=== PATIENT | female | born 2005 | race Caucasian/White ===

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

== ENCOUNTER 2024-05-28 12:37 | Inpatient (IN) | payer MEDICAID ==
[~2024-05-28] VITALS: Ht 165.1 cm; Wt 93.9 kg
[~2024-05-28 12:37] MED LIST changes: +METO5TAB86 MT; +NAPR-1494 MT; -NAPR375T5 MT; +NITR-87 MT
[2024-05-28 13:12] LABS: BASOPHILS % 0.5 % (0.0-2.0); DIFFERENTIAL COMMENT 0; EOSINOPHILS % 0.7 % (0.0-5.0); HEMATOCRIT. 40.3 % (36.0-48.0); HEMOGLOBIN. 12.9 g/dL (12.0-16.0); LYMPHOCYTES % 12.3 % (20.0-50.0); MEAN CORPUSCULAR HEMOGLOBIN 25.1 pg (28.0-32.0); MEAN CORPUSCULAR HGB CONC 31.9 g/dL (31.0-37.0); MEAN CORPUSCULAR VOLUME 78.6 fL (81.0-99.0); MEAN PLATELET VOLUME 9.8 fl (7.4-10.4); MONOCYTES % 6.6 % (2.0-8.0); NEUTROPHILS % 79.9 % (40.0-76.0); PLATELET 275 x1000/uL (130-400); RED BLOOD CELL COUNT 5.12 mill/uL (4.2-5.4); RED CELL DISTRIBUTION WIDTH 17.1 % (11.6-14.6); WHITE BLOOD COUNT 6.7 x1000/uL (4.5-11.0)
[2024-05-28 13:17] LABS: CHLORIDE 104 mEq/L (98-107); POTASSIUM 3.5 mEq/L (3.5-5.1); SODIUM 143 mEq/L (136-145)
[2024-05-28 13:18] LABS: CARBON DIOXIDE 29 mEq/L (21-32)
[2024-05-28 13:19] LABS: CALCIUM 9.5 mg/dL (8.7-10.4)
[2024-05-28 13:23] LABS: CREATININE 0.9 mg/dL (0.6-1.0); GLUCOSE 129 mg/dL (70-105)
[2024-05-28 13:24] LABS: UREA NITROGEN BLOOD 7 mg/dL (9-23)
[2024-05-28 13:25] LABS: ALANINE AMINOTRANSFERASE 451 IU/L (10-49); ALBUMIN 4.3 g/dL (3.2-4.8); ASPARTATE AMINOTRANSFERASE 834 IU/L (<34)
[2024-05-28 13:26] LABS: BILIRUBIN DIRECT 1.4 mg/dL (<=3.0); BILIRUBIN TOTAL 2.6 mg/dL (0.1-1.0); PROTEIN TOTAL 7.2 g/dL (6.0-8.3)
[2024-05-28] MEDS: SODIUM CHLORIDE 0.9% 1,000 ML IV ONE (15:12)
[2024-05-28] MEDS: KETOROLAC 15MG/ML VIAL IV ONE (15:13)
[2024-05-28] MEDS: MORPHINE SULFATE 4 MG/ML INJ (FOR IV/IM USE) IV NR (17:10)
[2024-05-28] MEDS: SODIUM CHLORIDE 0.9% (SEPSIS BOLUS) IV NR (17:10)
[2024-05-28 20:00] VITALS: BP 126/74; PULSE 66; RESP 18; TEMP 36.2; O2SAT 100
[2024-05-28] MEDS ORDERED: PREN-55 PO (20:11)
[2024-05-28] MEDS ORDERED: ESCI20TA PO (20:11)
[2024-05-28] MEDS ORDERED: FERR325T6 PO (20:11)
[2024-05-28] MEDS ORDERED: ATEN-42 PO (20:11)
[2024-05-28] MEDS ORDERED: ONDANSETRON HCL 4MG/2ML INJ IV PRN (20:15)
[2024-05-28] MEDS ORDERED: NALOXONE HCL 0.4MG/ML VIAL IV PRN (21:00)
[2024-05-28] MEDS: DEXT 5%/0.45% NACL KCL 20MEQ/L 1,000 ML IV SCH (22:14)
[2024-05-28] MEDS: CEFTRIAXONE 1GM/50ML 100 ML IV SCH (22:14)
[2024-05-29] VITALS: BP 120/70; PULSE 65; RESP 18; TEMP 36.1; O2SAT 98
[2024-05-29 04:00] VITALS: BP 102/53; PULSE 87; RESP 18; TEMP 36.4; O2SAT 99
[2024-05-29 06:37] LABS: CHLORIDE 109 mEq/L (98-107); SODIUM 145 mEq/L (136-145)
[2024-05-29 06:42] LABS: CALCIUM 8.3 mg/dL (8.7-10.4); CARBON DIOXIDE 25 mEq/L (21-32)
[2024-05-29 06:47] LABS: CREATININE 0.8 mg/dL (0.6-1.0); GLUCOSE 96 mg/dL (70-105); UREA NITROGEN BLOOD 6 mg/dL (9-23)
[2024-05-29 06:48] LABS: ALANINE AMINOTRANSFERASE 225 IU/L (10-49); ALBUMIN 3.2 g/dL (3.2-4.8); AMYLASE 648 IU/L (30-118); ASPARTATE AMINOTRANSFERASE 197 IU/L (<34)
[2024-05-29 06:49] LABS: BILIRUBIN TOTAL 0.7 mg/dL (0.1-1.0); PROTEIN TOTAL 5.3 g/dL (6.0-8.3)
[2024-05-29 07:05] LABS: BASOPHILS % 0.8 % (0.0-2.0); DIFFERENTIAL COMMENT 0; EOSINOPHILS % 2.2 % (0.0-5.0); HEMATOCRIT. 32.2 % (36.0-48.0); HEMOGLOBIN. 10.5 g/dL (12.0-16.0); LYMPHOCYTES % 36.4 % (20.0-50.0); MEAN CORPUSCULAR HEMOGLOBIN 25.7 pg (28.0-32.0); MEAN CORPUSCULAR HGB CONC 32.6 g/dL (31.0-37.0); MEAN CORPUSCULAR VOLUME 78.8 fL (81.0-99.0); MEAN PLATELET VOLUME 10.3 fl (7.4-10.4); MONOCYTES % 7.5 % (2.0-8.0); NEUTROPHILS % 53.1 % (40.0-76.0); PLATELET 224 x1000/uL (130-400); RED BLOOD CELL COUNT 4.08 mill/uL (4.2-5.4); RED CELL DISTRIBUTION WIDTH 16.7 % (11.6-14.6); WHITE BLOOD COUNT 6.8 x1000/uL (4.5-11.0)
[2024-05-29 08:00] VITALS: BP 108/60; PULSE 61; RESP 20; TEMP 36.6; O2SAT 98
[2024-05-29] MEDS: POTASSIUM CHLORIDE 20MEQ TABLET SR PO NR (08:53)
[2024-05-29] MEDS: MORPHINE SULFATE 2 MG/ML INJ (NOT FOR IM USE) IV PRN (08:53)
[2024-05-29] MEDS ORDERED: ACETAMINOPHEN 500MG TABLET PO PRN (09:00)
[2024-05-29] MEDS ORDERED: ONDANSETRON HCL 4MG/2ML INJ IV PRN (09:00)
[2024-05-29 12:00] VITALS: BP 105/63; PULSE 53; RESP 19; TEMP 37.2; O2SAT 98
[2024-05-29 16:00] VITALS: BP 125/93; PULSE 77; RESP 20; TEMP 36.6; O2SAT 100
[2024-05-29 20:00] VITALS: BP 124/73; PULSE 76; RESP 18; TEMP 36.1; O2SAT 97
[2024-05-29 20:01] LABS: GLUCOSE URINE NEGATIVE (NEGATIVE); KETONES URINE NEGATIVE (NEGATIVE)
[2024-05-29 23:00] LABS: COLOR URINE RED (YELLOW)
[2024-05-29 23:01] LABS: CLARITY URINE CLOUDY (CLEAR); LEUKOCYTE ESTERASE URINE 2+ (NEGATIVE); NITRITE URINE NEGATIVE (NEGATIVE); OCCULT BLOOD URINE 3+ (NEGATIVE); PH URINE 7.5 (4.5-8.0); PROTEIN URINE TRACE (NEGATIVE); SPECIFIC GRAVITY URINE 1.005 (1.005-1.030); UROBILINOGEN URINE 0.2 E.U./dL (0.2-1.0)
[2024-05-29 23:34] LABS: BACTERIA URINE 2+; RBC URINE TNTC /hpf (0-2); SQUAMOUS EPITHELIAL CELL URINE 1+ /lpf (RARE/1+)
[2024-05-30] VITALS: BP 100/53; PULSE 63; RESP 18; TEMP 36.2; O2SAT 100
[2024-05-30 04:00] VITALS: BP 90/57; PULSE 67; RESP 18; TEMP 36.2; O2SAT 98
[2024-05-30 06:06] LABS: BASOPHILS % 0.8 % (0.0-2.0); DIFFERENTIAL COMMENT 0; EOSINOPHILS % 2.6 % (0.0-5.0); HEMATOCRIT. 32.4 % (36.0-48.0); HEMOGLOBIN. 10.4 g/dL (12.0-16.0); LYMPHOCYTES % 31.8 % (20.0-50.0); MEAN CORPUSCULAR HEMOGLOBIN 25.4 pg (28.0-32.0); MEAN CORPUSCULAR HGB CONC 32.2 g/dL (31.0-37.0); MEAN CORPUSCULAR VOLUME 79.1 fL (81.0-99.0); MEAN PLATELET VOLUME 10.2 fl (7.4-10.4); MONOCYTES % 9.3 % (2.0-8.0); NEUTROPHILS % 55.5 % (40.0-76.0); PLATELET 213 x1000/uL (130-400); RED CELL DISTRIBUTION WIDTH 16.8 % (11.6-14.6); WHITE BLOOD COUNT 6.9 x1000/uL (4.5-11.0)
[2024-05-30 06:23] LABS: CHLORIDE 108 mEq/L (98-107); POTASSIUM 3.3 mEq/L (3.5-5.1); SODIUM 143 mEq/L (136-145)
[2024-05-30 06:24] LABS: CALCIUM 8.4 mg/dL (8.7-10.4); CARBON DIOXIDE 25 mEq/L (21-32)
[2024-05-30 06:29] LABS: CREATININE 0.7 mg/dL (0.6-1.0); GLUCOSE 100 mg/dL (70-105)
[2024-05-30 06:31] LABS: ALANINE AMINOTRANSFERASE 144 IU/L (10-49); ALBUMIN 3.4 g/dL (3.2-4.8); ASPARTATE AMINOTRANSFERASE 52 IU/L (<34)
[2024-05-30 06:32] LABS: BILIRUBIN TOTAL 0.6 mg/dL (0.1-1.0); PROTEIN TOTAL 5.4 g/dL (6.0-8.3)
[2024-05-30 06:40] LABS: UREA NITROGEN BLOOD < 5 mg/dL (9-23)
[2024-05-30 08:00] VITALS: BP 119/59; PULSE 52; RESP 18; TEMP 36.7; O2SAT 96
[2024-05-30] MEDS ORDERED: LEVO-65 MT (11:53)
[2024-05-30 12:00] VITALS: BP 117/72; PULSE 62; RESP 16; TEMP 36.4; O2SAT 98
[2024-05-30] MEDS: POTASSIUM CHLORIDE 20MEQ TABLET SR PO NR (14:16)
[2024-05-30 16:00] VITALS: BP 107/71; PULSE 66; RESP 18; TEMP 36.4; O2SAT 100
[2024-05-30] MEDS: KETOROLAC 30MG/ML VIAL IV PRN (19:10)
[2024-05-30 20:00] VITALS: BP 112/77; PULSE 77; RESP 20; TEMP 36.9; O2SAT 100
[2024-05-31] VITALS: BP 115/67; PULSE 55; RESP 20; TEMP 36.8; O2SAT 100
[2024-05-31 04:00] VITALS: BP 122/70; PULSE 75; RESP 20; TEMP 36.9; O2SAT 100
[2024-05-31 08:00] VITALS: BP 119/73; PULSE 56; RESP 16; TEMP 36.6
[2024-05-31] MEDS: ACETAMINOPHEN 325MG TABLET PO PRN (09:33)
[2024-05-31 11:58] VITALS: BP 120/70; PULSE 74; TEMP 98.1; O2SAT 100
== END 2024-05-31 12:30 | disposition home or self-care (01) | DRG 561 ==
LOC: ER 12:37 → EDBEDREQTM 17:31 → EDBEDREQ 17:31 → 7EST 18:50
PROVIDERS: ADMIT Internal Medicine; ATTEND Internal Medicine
DX: O26.63 Liver and biliary tract disorders in the puerperium (principal); K85.10 Biliary acute pancreatitis without necrosis or infection; O99.63 Diseases of the digestive system complicating the puerperium; O99.285 Endocrine, nutritional and metabolic diseases complicating the puerperium; O86.20 Urinary tract infection following delivery, unspecified; E87.6 Hypokalemia; N39.0 Urinary tract infection, site not specified; F41.9 Anxiety disorder, unspecified
CPT/HCPCS: 36415; 76705; 76801; 80048; 80053; 80076; 81003; 82150; 85025; 99291; J0696; J1885; J2270; J7030

== ENCOUNTER 2024-09-23 07:05 | Emergency (ER) | payer MEDICAID ==
[~2024-09-23] VITALS: Ht 165.1 cm; Wt 100.0 kg
[~2024-09-23 07:05] MED LIST changes: +ATEN-42 PO; -CEPH500T MT; +ESCI20TA PO; +FERR325T6 PO; +LEVO-65 MT; -NITR-87 MT; +PREN-55 PO; -SULF1TAB48 MT
[2024-09-23 07:18] VITALS: O2SAT 100
[2024-09-23 08:58] LABS: CLARITY URINE CLOUDY (CLEAR); COLOR URINE DARK YELLOW (YELLOW); GLUCOSE URINE NEGATIVE (NEGATIVE); KETONES URINE TRACE (NEGATIVE); LEUKOCYTE ESTERASE URINE 2+ (NEGATIVE); NITRITE URINE POSITIVE (NEGATIVE); OCCULT BLOOD URINE NEGATIVE (NEGATIVE); PH URINE 5.5 (4.5-8.0); PROTEIN URINE NEGATIVE (NEGATIVE); SPECIFIC GRAVITY URINE 1.021 (1.005-1.030); UROBILINOGEN URINE 1.0 E.U./dL (0.2-1.0)
[2024-09-23 09:29] LABS: BASOPHILS % 0.6 % (0.0-2.0); EOSINOPHILS % 1.2 % (0.0-5.0); HEMATOCRIT. 36.7 % (36.0-48.0); HEMOGLOBIN. 12.0 g/dL (12.0-16.0); LYMPHOCYTES % 13.9 % (20.0-50.0); MEAN PLATELET VOLUME 9.7 fl (7.4-10.4); MONOCYTES % 6.5 % (2.0-8.0); NEUTROPHILS % 77.8 % (40.0-76.0); PLATELET 286 x1000/uL (130-400); RED BLOOD CELL COUNT 4.47 mill/uL (4.2-5.4); RED CELL DISTRIBUTION WIDTH 17.2 % (11.6-14.6)
[2024-09-23 09:37] LABS: SQUAMOUS EPITHELIAL CELL URINE 2+ /lpf (RARE/1+)
[2024-09-23 09:38] LABS: BACTERIA URINE 3+; RBC URINE 0-2 /hpf (0-2); WBC URINE 15-25 /hpf (0-2)
[2024-09-23 09:44] LABS: CREATININE 0.9 mg/dL (0.6-1.0); UREA NITROGEN BLOOD < 5 mg/dL (9-23)
[2024-09-23 09:46] LABS: ASPARTATE AMINOTRANSFERASE 28 IU/L (<34); BILIRUBIN DIRECT 0.2 mg/dL (<=3.0); BILIRUBIN TOTAL 0.4 mg/dL (0.1-1.0)
[2024-09-23 09:47] LABS: PROTEIN TOTAL 7.3 g/dL (6.0-8.3)
[2024-09-23] MEDS: LIDOCAINE HCL 1% 20ML VIAL INFIL ONE (10:00)
[2024-09-23] MEDS: CEFTRIAXONE SODIUM 1G VIAL IM ONE (10:00)
[2024-09-23] MEDS ORDERED: CEPH500C2 MT (11:30)
[2024-09-23] MEDS ORDERED: IBUP-2029 MT (11:30)
[2024-09-23 12:03] VITALS: BP 116/74; PULSE 80; RESP 20; TEMP 36.6; O2SAT 100
== END 2024-09-23 12:15 | disposition home or self-care (01) ==
LOC: ER 07:05
DX: N39.0 Urinary tract infection, site not specified (principal); F41.9 Anxiety disorder, unspecified; Z79.899 Other long term (current) drug therapy
CPT/HCPCS: 80076; 80048; 81003; 81025; 83690; 85025; 87086; 36415; 76830; 76856; 96372; 99285; J0696; J2003; Z7610